=== PATIENT | female | born 1995 | race Hispanic/Latino ===

== ENCOUNTER 2024-04-01 20:39 | Emergency (ER) | payer OTHER, SELFPAY ==
[2024-04-01 20:40] VITALS: BP 144/89
[2024-04-01 21:16] LABS: COVID-19 Antigen Negative (Negative)
[2024-04-01] MEDS: DECADRON 10 MG PO (22:12)
[2024-04-01] MEDS: DUONEB 3 ML INH (22:12)
--- NOTE | 2024-04-01 23:27 | ED.GENMED ---
History of Present Illness
General
Chief Complaint: Cough
Source: patient and spouse
Exam Limitations: none
Time Seen by Provider: 04/01/24 21:44
Nursing documentation reviewed up to this point in time: agreed with
History of Present Illness
History of Present Illness:
28-year-old female presents to the emergency room for evaluation of cough and fever. Patient reports symptoms have been ongoing for the past 3 days. Son and daughter are sick with similar symptoms (daughter positive for RSV today). Patient
reports tactile fever and chills, hacking nonproductive cough. Mild shortness of breath. She denies any vomiting or diarrhea. Denies any abdominal pain. She denies any other complaints.
Past History
Past History
ED Past Medical History: None
ED Past Surgical History: None
Social History
Tobacco: Non-smoker
Alcohol: None
Drug: None
Review of Systems
Review of Systems
All Other Systems: ROS reviewed and negative except as documented in HPI and ROS
Constitutional: Reports fever and chills
EENT: Reports runny nose; Denies sore throat
Respiratory: Reports cough and trouble breathing
Cardiac: Denies chest pain
ABD/GI: Denies abdominal pain, vomiting or diarrhea
Neurological: Denies dizzy or headache
Phy Exam
Physical Exam
Physical Exam:
General: Awake, alert, oriented x3; no acute distress
Head: Normocephalic, atraumatic
Eyes: Conjunctiva normal, sclera anicteric
Ears: TMs clear bilaterally
Throat: Airway intact, handling secretions
Neck: Trachea midline, supple without meningismus
Lungs: Occasional scattered wheeze, no focal rales or rhonchi, no tachypnea, normal pulse ox on room air; frequent coughing
Heart: Regular rate and rhythm, no murmurs, gallops, or rubs
Neuro: No gross deficits
Extremities: Warm and well-perfused
Scores
Heart Failure Risk
Heart Failure Risk Score: Not Applicable
Heart Score for Chest Pain Patients
STEMI patient?: Not applicable
Withdrawal Assessment of Alcohol
Withdrawal Assessment Completed?: Not applicable
Course
Orders/Labs/Results
Orders:
Orders
04/01/24 20:43
CXR2 [CR Chest - 2 Views ] Urgent
Comment:
Reason For Exam: cough
04/01/24 20:51
COVID-19 Antigen Urgent
Source: Nasal Swab
Influenza A+B Rapid Molecular Urgent
[facility] Source: Nasal Swab
Specimen Description:
04/01/24 21:59
Dexamethasone [Decadron] 10 mg PO NOW STA
Ipratropium/Albuterol Sulfate [Duoneb] 3 ml INH R NOW ONE
Vital Signs
Initial and Last Documented VS:
Initial Vital Signs
Temp Pulse Resp BP Pulse Ox
37.1 C 94 16 144/89 98
04/01/24 20:40 04/01/24 20:40 04/01/24 20:40 04/01/24 20:40 04/01/24 20:40
Last Documented Vital Signs
Temp Pulse Resp BP Pulse Ox
37.1 C 85 16 144/89 99
04/01/24 20:40 04/01/24 22:59 04/01/24 20:40 04/01/24 20:40 04/01/24 22:59
MDM/Problems Addressed
Differential Diagnosis Includes:
Bronchitis, pneumonia, URI
MDM/Problems Addressed:
28-year-old female presents with symptoms as above; son and daughter are sick with similar, daughter positive for RSV. Chest x-ray reviewed by me shows no acute pneumonia. Suspect likely mild bronchitis. Will treat with dose of steroid,
albuterol. Tylenol Motrin as needed for fever. Stable for discharge. All questions answered.
*Radiology
Radiology exam reviewed: preliminary read by ED provider and radiology read reviewed
*Pulse Oximetry
Patient hypoxic: no
*Critical Care Note
Total Time (30-74mins, 75-104mins- exclusive of procedures): Not Applicable
Data Reviewed
Source: patient and family
ED Attending Note
-
Portions of this chart may have been created with voice recognition software.� Occasional wrong word or��sound alike� substitutions may have occurred due to the inherent limitations of voice recognition software.
Discharge Plan
Departure
Patient Disposition: Home (Routine Discharge)
Date of Disposition: 04/01/24
Time of Disposition: 22:38
Patient with high blood pressure during this ER visit?: No
Discharge Problem:
Acute bronchitis
Instructions: Acute Bronchitis, Adult (DC)
Prescriptions:
New
albuterol sulfate 90 mcg/actuation HFA aerosol inhaler
2 puff inhalation Q6H PRN (Reason: shortness of breath or wheezing) Qty: 8.5 0RF
No Action
acetaminophen 325 mg Tablet
650 mg PO Q4HPRN PRN (Reason: mild pain) Qty: 0 0RF
ibuprofen 600 mg Tablet
600 mg PO Q4HPRN PRN (Reason: moderate pain/cramps) Qty: 0 0RF
Referrals:
NONE,* [Family Provider] -
Activity Restrictions/Additional Instructions:
Thank you for visiting the Emergency Department at [facility].
1. Please schedule a follow up appointment as directed. Call first thing tomorrow morning to make an appointment.
2. If indicated, please take your medications as instructed and indicated on discharge paperwork.
3. If any of your symptoms do not improve, or persist, or become more severe within 6-12 hours, please return to the emergency department for further care.
4. Please return to the emergency department if you develop a headache, neck pain/stiffness, fever greater than 100.4F, chest pain, shortness of breath, persistent nausea, vomiting, slurred speech, difficulty walking, numbness/tingling, weakness,
signs of infection or any other symptoms that are worrisome to you.
Please call [phone] if you have any questions.
Interventions
Interventions:
*Risk Screen - Suicide Last Done: 04/01/24 20:40
*General Assessment Last Done: 04/01/24 21:39
*Neglect/Abuse Screening Last Done: 04/01/24 20:40
ED- Fall Risk Assessment Last Done: 04/01/24 23:01
*ED COVID-19 Vaccine History Last Done: 04/01/24 21:39
*Nursing Disposition Last Done: 04/01/24 23:01
ED- Pulmonary Assessment Last Done: 04/01/24 21:39
Discharge Date and Time
Discharge Date/Time: 04/01/24 23:02
Print Language: [place]
== END 2024-04-01 23:02 | disposition home or self-care (01) ==
LOC: EMR 20:39
PROVIDERS: Emergency Medicine; EMERGENCY PHYSICIAN Emergency Medicine
DX: J20.9 Acute bronchitis, unspecified (principal); Z11.52 Encounter for screening for COVID-19
CPT/HCPCS: 99284; 94640; 71046; 87502; 87811